=== PATIENT | male | born 1995 | race Two or more races ===

== ENCOUNTER 2024-03-26 07:10 | Emergency (ER) | payer OTHER ==
[~2024-03-26] VITALS: Ht 167.6 cm; Wt 99.8 kg
[2024-03-26] MEDS ORDERED: METOCLOPRAMIDE HCL 5 MG/ML VIAL IM STA (09:19)
[2024-03-26] MEDS ORDERED: MECLIZINE HCL 25 MG TABLET PO STA (09:20)
== END 2024-03-26 09:34 | disposition home or self-care (01) ==
LOC: ER 07:11
DX: K29.70 Gastritis, unspecified, without bleeding (principal); F12.10 Cannabis abuse, uncomplicated